=== PATIENT | female | born 1950 | race Caucasian/White ===

== ENCOUNTER 2016-11-11 06:57 | Day surgery (SDC) | payer OTHER ==
--- NOTE | 2016-11-11 09:31 | OPERATIVE NOTE ---
PROCEDURE DATE: 11/11/2016 PREOPERATIVE DIAGNOSIS: Large solid lesion, right thyroid lobe, 6+ cm. POSTOPERATIVE DIAGNOSIS: Large solid lesion, right thyroid lobe, 6+ cm. PROCEDURE PERFORMED: Ultrasound biopsy. PROVIDER: Jer Maldonado MD DESCRIPTION OF PROCEDURE: The patient has brought to the ultrasound suite. The right side of her neck was prepped and draped in the appropriate manner. The neck was prepped with Betadine, infiltrated with Xylocaine, in the dominant portion of the mass. Under ultrasound guidance, a Aureliano- Cut needle was passed with 2 satisfactory cores being obtained. There was no evidence of bleeding or expanding hematoma. A Band-Aid was applied. The patient was allowed to dress and go home.
== END 2016-11-11 12:00 | disposition home or self-care (01) ==
LOC: US 06:57 → EDSTATUS 07:30 → US 12:00
PROVIDERS: ATTEND Surgery
DX: E04.1 Nontoxic single thyroid nodule (principal)
CPT/HCPCS: 60100; 88305; 88313